=== PATIENT | female | born 1995 | race Caucasian/White ===

== ENCOUNTER 2024-07-13 06:14 | Inpatient (IN) ==
[~2024-07-13 06:14] MED LIST: KETAMINE HCL ONE; ULTANE GAS IN ONE; VENTOLIN or PROAIR HFA ONE
[2024-07-13] MEDS: NOZIN NASAL SANITIZER TP ONE (06:42)
[2024-07-13] MEDS: D5 1/2 NS 1,000 ML 1,000 ML IV ONE (06:43)
[2024-07-13] MEDS: ANCEF VIAL 1 GRAM ONE (06:44)
[2024-07-13] MEDS: VERSED ONE (07:02)
[2024-07-13] MEDS: BRIDION ONE (07:02)
[2024-07-13] MEDS: FENTANYL VIAL INJ 100 mcg ONE (07:02)
[2024-07-13] MEDS: DIPRIVAN VIAL 20 ML ONE ×2 (07:02→09:01)
[2024-07-13] MEDS: PRECEDEX INJ VIAL ONE (07:02)
[2024-07-13] MEDS: REGLAN INJ 10 MG VIAL ONE (07:02)
[2024-07-13] MEDS: ZOFRAN INJ 4 MG VIAL ONE (07:02)
[2024-07-13] MEDS: PEPCID 20 MG VIAL ONE (07:02)
[2024-07-13] MEDS: XYLOCAINE 2 % (PLAIN) ONE (07:02)
[2024-07-13] MEDS: ZEMURON 100 MG VIAL ONE (07:06)
[2024-07-13] MEDS: ANCEF VIAL 1 GRAM IVP ONE (07:09)
[2024-07-13] MEDS: NS 100 ML IV 100 ML ONE (07:09)
[2024-07-13 07:11] VITALS: BMI 29.2
[2024-07-13] MEDS: 1/2 NS IV PRN (07:15)
[2024-07-13] MEDS: VERSED IVP PRN (07:15)
[2024-07-13] MEDS: D5 IV PRN (07:15)
[2024-07-13] MEDS: ZOFRAN INJ 4 MG VIAL IVP PRN ×2 (07:16→15:22)
[2024-07-13] MEDS: PEPCID 20 MG VIAL IVP PRN ×2 (07:17→07:18)
[2024-07-13] MEDS: REGLAN INJ 10 MG VIAL IVP PRN (07:19)
[2024-07-13] MEDS: BETADINE SOLN ONE (07:21)
[2024-07-13] MEDS: ANCEF VIAL 1 GRAM IV PRN (07:21)
[2024-07-13] MEDS: TRANSDERM-SCOP TD PRN (07:22)
[2024-07-13] MEDS: BENADRYL INJ 50 MG VIAL ONE (07:25)
[2024-07-13] MEDS: BENADRYL INJ 50 MG VIAL IVP PRN ×2 (07:25→09:16)
[2024-07-13] MEDS: FENTANYL VIAL INJ 100 mcg IVP PRN (07:25)
[2024-07-13] MEDS: XYLOCAINE 2 % (PLAIN) INJ PRN (07:26)
[2024-07-13] MEDS: ZEMURON 100 MG VIAL IVP PRN ×2 (07:27→08:17)
[2024-07-13] MEDS: DIPRIVAN VIAL 200 ML IVP PRN (07:35)
[2024-07-13] MEDS: ProvayBLUE 0.5% ONE (07:39)
[2024-07-13] MEDS: OFIRMEV IV 1000 MG VIAL 1,000 MG/100 ML VIAL IV PRN (07:40)
[2024-07-13] MEDS: KETAMINE HCL IV PRN (07:42)
[2024-07-13] MEDS: DECADRON INJ ONE (07:44)
[2024-07-13] MEDS: DECADRON INJ IVP PRN (07:47)
[2024-07-13] MEDS: PRECEDEX INJ VIAL IVP PRN ×2 (07:55→09:20)
[2024-07-13] MEDS: TORADOL 30 MG VIAL ONE (08:07)
[2024-07-13] MEDS ORDERED: ZOFRAN INJ 4 MG VIAL IVP PRN (08:13)
[2024-07-13] MEDS ORDERED: BENADRYL INJ 50 MG VIAL IVP PRN (08:13)
[2024-07-13] MEDS: LR 1,000 ML IV 1,000 ML IV ONE (08:23)
[2024-07-13] MEDS: LR 1,000 ML IV 300 ML IV PRN (08:27)
[2024-07-13] MEDS: EPHEDRINE SULFATE INJ ONE (08:49)
[2024-07-13] MEDS: EPHEDRINE SULFATE INJ IVP PRN (08:51)
[2024-07-13] MEDS: DIPRIVAN VIAL 320 ML IVP PRN (09:04)
[2024-07-13] MEDS: TORADOL 30 MG VIAL IVP PRN ×2 (09:08→12:06)
[2024-07-13] MEDS: BRIDION IVP PRN (09:15)
[2024-07-13] MEDS: DANTRIUM IVP PRN (09:19)
[2024-07-13] MEDS: DILAUDID INJ ONE ×2 (09:21→10:10)
[2024-07-13] MEDS: DILAUDID INJ IVP PRN ×2 (09:25→09:52)
[2024-07-13] MEDS: D5 1/2 NS 1,000 ML 1,000 ML IV SCH ×2 (09:58→11:02)
[2024-07-13] MEDS ORDERED: NARCAN INJ IVP PRN (09:58)
[2024-07-13] MEDS: BARHEMSYS INJ ONE (10:13)
[2024-07-13] MEDS: BARHEMSYS INJ IVP PRN (10:15)
[2024-07-13] MEDS: MORPHINE SULFATE PCA 30 MG IVP PRN (10:30)
[2024-07-13] MEDS: PEPCID TAB 40 MG PO SCH (21:00)
[2024-07-14] MEDS: BENADRYL INJ 50 MG VIAL IVP PRN (04:32)
[2024-07-14 05:05] LABS: BASOPHILS # (AUTO) 0.1 X10^3/uL (0.0-0.1); BASOPHILS % (AUTO) 0.3 % (0.2-1.0); EOSINOPHILS % (AUTO) 0.1 % (0.9-2.9); HEMATOCRIT 33.4 % (36.0-47.0); HEMOGLOBIN 11.1 g/dL (12.0-16.0); LYMPHOCYTES # (AUTO) 1.9 X10^3/uL (1.3-2.9); LYMPHOCYTES % (AUTO) 11.4 % (21.0-51.0); MEAN CORPUSCULAR HEMOGLOBIN 29.4 pg (27.0-34.0); MEAN CORPUSCULAR HGB CONC 33.3 g/dL (33.0-35.0); MEAN CORPUSCULAR VOLUME 88.2 fL (80.0-100.0); MEAN PLATELET VOLUME 7.2 fL (7.4-11.0); MONOCYTES % (AUTO) 6.1 % (0.0-13.0); NEUTROPHILS % (AUTO) 82.1 % (42.0-75.0); PLATELET COUNT 331 X10^3/uL (150.0-450.0); RED BLOOD COUNT 3.79 X10^6/uL (3.5-5.4); RED CELL DISTRIBUTION WIDTH 13.7 % (11.6-16.5); WHITE BLOOD COUNT 17.1 X10^3/uL (3.6-10.0)
[2024-07-14 05:11] LABS: BLOOD UREA NITROGEN 5 mg/dL (7-18); CALCIUM 8.1 mg/dL (8.5-10.1); CARBON DIOXIDE 27.7 mmol/L (21-32); CHLORIDE 102 mmol/L (98-107); CREATININE 0.63 mg/dL (0.55-1.02); GLUCOSE 92 mg/dL (65-99); POTASSIUM 3.5 mmol/L (3.5-5.1); SODIUM 138 mmol/L (136-145); eGFR NON BLACK RACES > 60 (>60)
[2024-07-14] MEDS: PROTONIX TAB 40 MG PO SCH (08:08)
[2024-07-14] MEDS: COLACE CAP 100 MG PO SCH (08:19)
[2024-07-14] MEDS: ESTRACE PO SCH (08:19)
[2024-07-14] MEDS: MOTRIN TAB 800 MG PO PRN (12:18)
[2024-07-14] MEDS: BACTROBAN TOPICAL OINT TOP SCH (14:50)
[2024-07-14] MEDS: PERCOCET TAB 5/325 MG PO PRN (16:39)
[2024-07-14] MEDS: BENADRYL CAP/TAB 25 MG PO PRN (16:39)
[2024-07-14] MEDS: ZOFRAN TAB 4 MG PO PRN (17:30)
[2024-07-15 09:49] VITALS: BP 115/65; PULSE 94; RESP 20; TEMP 98.6; O2SAT 97
== END 2024-07-15 09:30 | disposition home or self-care (01) | DRG 743 ==
LOC: MED/SURG 06:14
PROVIDERS: ADMIT Specialist; ATTEND Specialist
DX: N94.4 Primary dysmenorrhea; N80.8 Other endometriosis; N92.5 Other specified irregular menstruation; Z60.8 Other problems related to social environment; R10.2 Pelvic and perineal pain; N94.19 Other specified dyspareunia